=== PATIENT | male | born 1965 | race Caucasian/White ===

== ENCOUNTER 2016-08-21 20:36 | Emergency (ER) | payer OTHER ==
[~2016-08-21 20:36] MED LIST: ADDERALL XR 3030 M1 PO; AMBIEN10 M1 PO; DEPAKOTE ER500 M1 PO; SAPHRIS10 M1 SL
[2016-08-21] MEDS ORDERED: CYCLOBENZAPRINE10 M1 PO (21:26)
[2016-08-21] MEDS ORDERED: NORCO 5-325 TA1 EACH PO (21:26)
[2017-01-26] MEDS ORDERED: LATUDA40 M1 PO (17:51)
[2017-01-26] MEDS ORDERED: SAPHRIS10 M1 SL (17:52)
== END 2016-08-21 21:42 ==
LOC: EDMED 20:36
DX: S39.012A Strain of muscle, fascia and tendon of lower back, initial encounter (principal); Z98.890 Other specified postprocedural states; V89.2XXA Person injured in unspecified motor-vehicle accident, traffic, initial encounter; Y92.410 Unspecified street and highway as the place of occurrence of the external cause
CPT/HCPCS: J1885; J2270

== ENCOUNTER 2016-09-07 13:45 | Emergency (ER) | payer OTHER ==
[~2016-09-07 13:45] MED LIST changes: +CYCLOBENZAPRINE10 M1 PO; +NORCO 5-325 TA1 EACH PO
[2016-09-07] MEDS ORDERED: CYCLOBENZAPRINE5 M1 PO (16:07)
[2016-09-07] MEDS ORDERED: NORCO 5-325 TA1 EACH PO (16:07)
[2017-01-26] MEDS ORDERED: LATUDA40 M1 PO (17:51)
[2017-01-26] MEDS ORDERED: SAPHRIS10 M1 SL (17:52)
== END 2016-09-07 16:20 ==
LOC: EDMED 13:45
DX: M25.511 Pain in right shoulder (principal); F17.210 Nicotine dependence, cigarettes, uncomplicated

== ENCOUNTER 2016-09-13 01:59 | Emergency (ER) | payer OTHER ==
[~2016-09-13 01:59] MED LIST changes: +CYCLOBENZAPRINE5 M1 PO
[2016-09-13] MEDS ORDERED: SYNTHROID50 MC1 PO (02:05)
[2017-01-26] MEDS ORDERED: LATUDA40 M1 PO (17:51)
[2017-01-26] MEDS ORDERED: SAPHRIS10 M1 SL (17:52)
== END 2016-09-13 04:29 ==
LOC: EDMED 01:59
DX: M25.511 Pain in right shoulder (principal); K08.89 Other specified disorders of teeth and supporting structures
CPT/HCPCS: J1885